=== PATIENT | female | born 1975 | race Caucasian/White ===

== ENCOUNTER 2017-01-21 03:04 | Inpatient (IN) ==
[2017-01-21] MEDS ORDERED: TYLENOL ONE (03:13)
[2017-01-21 03:32] LABS: BASO% 0.1 % (0.0-0.8); MANUAL DIFF NEEDED? NO; MCH 31.7 PG (27-31)
[2017-01-21] MEDS ORDERED: TYLENOL PO ONE (03:33)
[2017-01-21] MEDS ORDERED: DEMEROL IM ONE (03:54)
--- NOTE | 2017-01-21 03:54 | PROVIDER DOCUMENTATION ---
HPI-Abdominal Pain/GI Problem - General Chief Complaint: Insect Bite/Sting Stated Complaint: INSECT BITE/STING Time Seen by Provider: 01/21/17 03:41 Source: patient Allergies/Adverse Reactions: Patient Allergies Allergy/AdvReac Type Severity Reaction Status Date / Time codeine [Codeine] Allergy Intermediate HIVES Verified 01/21/17 03:17 morphine Allergy Intermediate HIVES Verified 01/21/17 03:17 Home Medications: Home Medication List Medication Instructions Recorded Confirmed Last Taken Type Escitalopram Oxalate [Lexapro] 20 mg PO DAILY 03/05/15 01/21/17 06/05/15 History Gabapentin [Neurontin] 300 mg PO TID 03/05/15 01/21/17 06/16/15 History Meloxicam [Mobic] 15 mg PO DAILY 06/17/15 01/21/17 06/16/15 History - History of Present Illness-ABD Nature of Presenting Problems: FOUND TICK ON THUMB WITH LYMPHANGITIS ASCENDING TO ELBOW FEVERISH CHILLS AND ABDOMINAL PAIN Abdominal Pain Onset Location: reports: generalized abdomen Pain Radiation: reports: no radiation Quality of Pain: reports: cramping Severity in ED: reports: moderate Onset/Duration: reports: this morning Timing: reports: still present, getting worse Activities at Onset: reports: none Exposure to sick contacts?: No Modifying Factors: improves with: nothing Associated Symptoms: reports: diarrhea, fever/chills, headaches, joint pain, muscle aches, nausea, shortness of breath Last BM: 24 hours ago Dark Stools Present?: reports: none noticed Rectal Bleeding: reports: none # of Diarrhea Episodes: 2 Rectal Pain: reports: none # of Vomiting Episodes: 0 Bruising or Bleeding Gums?: No Similar Symptoms Previously?: No Recently seen or treated by another doctor?: No Review of Systems - Adult - REVIEW OF SYSTEMS - ADULT Constitutional: reports: chills, fever Eyes: reports: no symptoms reported Ears, Nose, Mouth & Throat: reports: no symptoms reported Cardiovascular: reports: palpitations Respiratory: reports: cough. denies: hemoptysis Gastrointestinal: reports: abdominal pain, diarrhea, nausea. denies: constipation, vomiting Musculoskeletal: reports: bone pain, back pain, joint swelling, muscle aches. denies: neck pain Integumentary: reports: skin sores/ulcer Neurological: reports: no symptoms reported Psychiatric: reports: anxiety, emotional problems Endocrine: reports: no symptoms reported Hematologic/Lymphatic: reports: no symptoms reported, blood clots. denies: easy bruising, low blood count Allergic/Immunologic: reports: no symptoms reported All Other Systems: Reviewed and Negative Past History - Adult - PAST MEDICAL HISTORY-ADULT Review of Records: reports: Nursing Assessment Review, Medications Reviewed, Social history reviewed & non-contributory. Major Childhood Illnesses: reports: denies history Respiratory: reports: COPD Musculoskeletal: reports: chronic pain Psychiatric: reports: depression Endocrine/Immune: reports: denies history - PRIOR SURGERIES/PROCEDURES Surgical/Procedure History: reports: none - IMMUNIZATION STATUS Childhood Immunizations: See Nurse Assessment Flu Vaccine: See Nurse Assessment - SOCIAL HISTORY Smoking: cigarettes Alcohol Use Frequency: never Physical Exam-General - PHYSICAL EXAM-ADULT Initial Vital Signs Reviewed: Yes - CONSTITUTIONAL General Appearance: moderate distress - EYES Eyes: PERRL/EOMI, pink conjunctivae - HEAD, EARS, NOSE, MOUTH & THROAT HENMT: normocephalic/atraumatic, moist mucous membranes, normal ENT inspection, TMs normal, pharynx normal - NECK Neck: supple. negative: lymphadenopathy - RESPIRATORY Respiratory: lungs clear, no respiratory distress, no accessory muscle use, increased rate - CARDIOVASCULAR Cardiovascular: tachycardia - GASTROINTESTINAL (ABDOMEN) Abdominal Exam: soft, guarding, tenderness. negative: distended, rigid, rebound - LYMPHATIC Lymphatic: no adenopathy - MUSCULOSKELETAL Back Exam: normal inspection, no CVA tenderness, no vertebral tenderness Extremity: normal range of motion - SKIN Integumentary: normal color, normal turgor, erythema, swelling - NEUROLOGIC Neurologic: grossly normal - PSYCHIATRIC Psych/Mental Status: oriented x 3 Progress - PLAN OF CARE/RESULTS Progress/Plan/Lab Results: Vital Signs - 8 hr 01/21/17 03:10 Temperature 101 F H Pulse Rate 128 H Respiratory Rate 20 Blood Pressure 133/100 O2 Sat by Pulse Oximetry 96 Laboratory Results - last 24 hr 01/21/17 03:20 WBC 18.52 H RBC 4.54 Hgb 14.4 Hct 41.6 MCV 91.6 MCH 31.7 H MCHC 34.6 RDW Std Deviation 11.9 Plt Count 56 L MPV 11.3 H Immature Gran % (Auto) 0.4 Neut % (Auto) 88.4 H Lymph % (Auto) 6.1 L [place] % (Auto) 3.7 Eos % (Auto) 1.3 Baso % (Auto) 0.1 Immature Gran # (Auto) 0.07 H Neut # (Auto) 16.37 H Lymph # (Auto) 1.13 L [place] # (Auto) 0.68 H Eos # (Auto) 0.25 Baso # (Auto) 0.02 Orders Category Date Time Status CBC WITH ELECTRONIC DIFF [HEME] Stat Lab 01/21/17 03:20 Completed CMP [COMPREHENSIVE METABOLIC PANEL] [CHEM] Stat Lab 01/21/17 03:20 Received Acetaminophen [Tylenol] Med 01/21/17 03:13 Discontinued 1,000 mg .ROUTE .STK-MED ONE Acetaminophen [Tylenol] Med 01/21/17 03:33 Discontinued 1,000 mg PO NOW ONE Result Diagrams: 01/21/17 03:20 01/21/17 03:45 - XRAY 1 XRAY Study: Chest Impression: Normal Departure - Departure Date of Disposition Decision: 01/21/17 Time of Disposition Decision: 05:09 DIAGNOSIS: Lymphangitis Disposition: HOME 01 Certified Medical Emergency: Emergent Condition: Stable Additional Freetext Instructions: ED Follow Up Instructions: You have been treated by a care provider in the Emergency Department. These instructions are being provided to you so you can have an understanding of how to care for yourself upon discharge. Upon discharge from the Emergency Department, you are responsible for making arrangements for follow-up care by a physician of your choice. Take all prescribed medications as directed. Return to the Emergency Department immediately for any new or worsening symptoms. You may call the Physician Referral phone number at [phone] to obtain a list of Physicians who are taking new patients. Referrals and Follow-Ups: Mike Rodriguez [Primary Care Provider] - - Critical Care Note This patient required my direct & personal management of CC.: No
[2017-01-21] MEDS ORDERED: PHENERGAN IM ONE (03:55)
[2017-01-21 04:09] LABS: EOS# 0.01 X1000 (0.0-0.7); HEMATOCRIT 39.9 % (37.0-47.0); HEMOGLOBIN 13.9 g/dL (12.0-16.0); IMM GRAN# 0.06 X1000 (0.0-0.04); IMM GRAN% 0.3 % (0.0-0.5); LYMPH# 1.17 X1000 (1.2-3.4); LYMPH% 5.5 % (20.5-51.1); MCHC 34.8 g/dL (33-37); MCV 91.1 FL (81-99); MONO# 0.84 X1000 (0.11-0.59); MPV 9.7 FL (7.4-10.4); NEUT% 90.1 % (42.2-75.2); RBC 4.38 XMIL (4.2-5.4)
[2017-01-21 04:25] LABS: AGAP 15; ALBUMIN 4.3 g/dL (3.5-5.0); ALKALINE PHOSPHATASE 65 U/L (32-104); AMYLASE 43 U/L (20-200); BUN 14 mg/dL (8-22); CALCIUM 9.2 mg/dL (8.8-10.2); CHLORIDE 100 mmol/L (98-107); COSMO 268; GOT 24 U/L (10-30); GPT 30 U/L (10-36); LIPASE 28 U/L (13-60); POTASSIUM 3.6 mmol/L (3.5-5.1); SODIUM 133 mmol/L (136-145); TCO2 19 mmol/L (25-35); TOTAL PROTEIN 7.4 g/dL (6.3-8.3)
[2017-01-21 04:47] LABS: PLT 257 X1000 (130-400)
[2017-01-21] MEDS ORDERED: XYLOCAINE-MPF 1% INJ ONE (04:48)
[2017-01-21] MEDS ORDERED: ROCEPHIN IM ONE (04:48)
[2017-01-21 04:53] LABS: BILIRUBIN URINE NEGATIVE (NEGATIVE); BLOOD URINE 1+ (NEGATIVE); CLARITY SL. CLOUDY (CLEAR); COLOR YELLOW; LEUKOCYTES URINE 2+ (NEGATIVE); NITRITE URINE POSITIVE (NEGATIVE); PROTEIN URINE TRACE mg/dL (NEGATIVE); SP GRAVITY URINE 1.015
[2017-01-21] MEDS ORDERED: NS 1,000 ML IV ONE (05:02)
[2017-01-21] MEDS ORDERED: ROCEPHIN 1 GM/NS 1 GM/50 ML IVPB IV STA (05:04)
[2017-01-21] MEDS ORDERED: NORCO-5 PO PRN (05:07)
[2017-01-21 05:08] LABS: URINE CULTURE PL NEEDED? YES; URINE EPITHELIAL CELLS <10 /HPF (<10); URINE RBC <10 /HPF (<10); URINE SOURCE CLEAN CATCH
[2017-01-21 05:09] LABS: UROBILINOGEN URINE 4+(12 mg/dL)
[2017-01-21] MEDS ORDERED: VANCOMYCIN 1 GM/NS 1 GM/250 ML IVPB ONE (05:09)
[2017-01-21] MEDS ORDERED: VANCOMYCIN IV PER PHARMACY MISC SCH (05:15)
[2017-01-21] MEDS ORDERED: NICODERM PATCH TD ONE (05:18)
[2017-01-21] MEDS ORDERED: VANCOMYCIN 1 GM/NS 1 GM/250 ML IVPB IV ONE (06:00)
--- NOTE | 2017-01-21 07:31 | Diag Imaging Result Doc PS360 ---
EXAM: CHEST-2 VIEWS HISTORY: Fever TECHNIQUE: PA and lateral chest COMMENT: There may be COPD. Compared to 05/17/2012 the appearance of the chest has not changed appreciably considering differences in inspiration. There are no focal opacities in the heart and pulmonary vascularity are within normal limits. IMPRESSION: COPD. Electronically signed by Kev Figueroa 01/21/2017 7:29 AM
[2017-01-21] MEDS ORDERED: NORCO-10 PO ONE (07:59)
[2017-01-21] MEDS ORDERED: VANCOMYCIN 800 MG in NS 250 ML IV ONE ×4 (08:00)
[2017-01-21] MEDS ORDERED: VANCOMYCIN 850 MG in NS 250 ML IV ONE (08:00)
[2017-01-21] MEDS ORDERED: MOBIC PO SCH (09:00)
[2017-01-21] MEDS: LEXAPRO PO SCH (09:24)
[2017-01-21] MEDS: NEURONTIN PO SCH ×3 (09:24→16:49)
[2017-01-21] MEDS: NICODERM PATCH TD SCH (10:03)
[2017-01-21] MEDS: DEMEROL IV PRN ×3 (10:04→20:26)
--- NOTE | 2017-01-21 10:08 | HISTORY AND PHYSICAL ---
PRIMARY CARE PHYSICIAN: Dr. Rodriguez. CHIEF COMPLAINT: Redness to her left forearm after she found a tick on her thumb. Was also having fever, chills, and abdominal pain. HISTORY OF PRESENTING ILLNESS: This is a 41-year-old, female who presented to [facility] ER with complaints of pain to her left forearm after she states, on the 19 of January, she found a tick on her thumb, then began having fevers, chills , and abdominal pain. She also had some dysuria and urgency. Her left arm is noted to be erythematous and warm to touch from her left thumb ascending up to her elbow. Workup in the ER showed a white blood cell count of 21.23. Urinalysis showed positive nitrites, 2+ white blood cells , and 4+ bacteria. The patient states she is having severe abdominal pain. States that it is a osvaldo, cramping sensation that is occurring every 30 seconds to 1 minute, and then will relax. She is tearful during these episodes of her abdominal pain so she is being admitted for further evaluation and treatment. PAST MEDICAL HISTORY: COPD and depression. PAST SURGICAL HISTORY: None. FAMILY HISTORY: Noncontributory. SOCIAL HISTORY: She currently lives alone. Smokes a half a pack of cigarettes a day and has done so for the past 20-25 years. Denied any alcohol or illicit drug use. ALLERGIES: Codeine and morphine. HOME MEDICATIONS: She takes Lexapro 20 mg p.o. daily, Neurontin 300 mg p.o. t.i.d., and Mobic 15 mg p.o. daily. LABORATORY DATA: Showed a white blood cell count of 21.23, hemoglobin of 13.9, hematocrit 39.9, platelets 257,000. PTT was 23. Sodium 133, potassium 3.6, chloride 100, CO2 19 , BUN of 14, creatinine 0.5, glucose 122, calcium 9.2. Amylase 43, lipase 28. Plasma lactate was 2.3. Urinalysis showed positive nitrites, 2+ white blood cells, 4+ bacteria. Chest x -ray showed COPD. REVIEW OF SYSTEMS: She was positive for fever, chills, abdominal pain, dysuria , urgency, pain to her left forearm from her thumb ascending up to the elbow. Otherwise negative review of systems. PHYSICAL EXAMINATION: VITAL SIGNS: On arrival, she had a temperature of a 101 degrees, pulse was 128 , respirations were 20. Blood pressure 133/100 and was saturating 96% on room air. Currently, she has a temperature of 98.7 degrees. GENERAL: This is a 41-year-old, female who is lying in the bed and answers questions appropriately. HEENT: Normocephalic and atraumatic. The pupils are equal, round, and reactive to light. The extraocular movements are intact. The oropharynx and nares are clear. NECK: Supple. LUNGS: Clear to auscultation bilaterally with equal lung expansion and chest wall movement. HEART: With regular rate and rhythm. No murmurs, rubs, or gallops. ABDOMEN: Soft. Tenderness to palpation throughout entire abdomen. Bowel sounds were present x4 quadrants. EXTREMITIES: No clubbing, cyanosis. Patient is noted on her left thumb to have redness that ascends up to the elbow. There is minimal warmth to touch at this time. NEUROLOGICAL: The cranial nerves 2-12 appear grossly intact. ASSESSMENT: 1. Left forearm cellulitis secondary to tick bite. 2. Leukocytosis. 3. Urinary tract infection. 4. Abdominal pain. 5. Tobacco abuse. PLAN: She was admitted to the medical unit. Placed on a regular diet. Vancomycin per pharmacy protocol. Rocephin 1 gram IV q.24. We will also place her on doxycycline 100 mg IV q.12. Continue her home medications. She has normal saline at 125 mL an hour. She does have a urinary tract infection but her abdominal pain is not appearing to be we correlated with the urinary tract infection as she just has generalized cramping and states that it feels like a contraction. We are going to check a flat and upright of her abdomen today. Give her some Demerol 25 mg IV q.3 hours p.r.n. Continue her [place] 10 one p.o. q.6 hours p.r.n. Recheck a CBC and a BMP in the a.m. I also give her a nicotine patch 21 mg transdermally daily. Dictated by LYNNETTE Forrester for Lenin Paris MD cc: LYNNETTE Forrester MD Vito Pukis, MD I have seen and examined patient and I agree with the outline plan. suspected tick bite abdominal pain with diarrhea r/o colitis rkq MTDD
[2017-01-21] MEDS: DOXYCYCLINE 100 MG in NS 250 ML IV SCH (10:33)
--- NOTE | 2017-01-21 11:09 | Diag Imaging Result Doc PS360 ---
EXAM: ABDOMEN FLAT/UPRIGHT HISTORY: abd pain TECHNIQUE: Two views COMMENT: There are air-fluid levels in the ascending colon and throughout the small bowel. There is stool in the descending colon with gas in the rectum. There is no evidence organomegaly or mass. There may be some mucosal thickening in the distal ileum. IMPRESSION: Ileus versus partial small bowel obstruction. Possibility of inflammatory bowel disease cannot be excluded on the basis of this study. Electronically signed by Kev Figueroa 01/21/2017 11:07 AM
--- NOTE | 2017-01-21 15:47 | PROGRESS NOTE ---
DATE: 01/21/2017 SUBJECTIVE: Today, Ms. Carlton referred to be doing relatively fine. Continues to have remarkable abdominal pain. Also had 4 bowel movements since today. Ms. Carlton got admitted yesterday because of possible tick bites with lymphangitis. OBJECTIVE: Vital signs: Blood pressure is 138/75, pulse of 91, respirations 22, temperature 97.6 degrees. General: Ms. Carlton is a 41-year-old female. She is in bed, in mild abdominal discomfort. HEENT: Mucosa is pink and moist. Anicteric. Acyanotic. Neck: Supple. Chest: Good air entry bilateral. No crepitations. No rhonchi. Cardiovascular: Regular rate and rhythm. No murmurs, no rubs. No gallops. Abdomen: Soft, tender all over, more so in the periumbilical region. Extremities: The left arm has a point on the medial aspect which is consistent with a possible bite and there continues erythematous changes all the way up to the arm. TRAVEL OCCUPATIONAL THERAPIST: Patient is awake and alert and oriented x4. There is no focal neurological deficit. LABORATORY DATA: WBC is 21.23, hemoglobin is 13.9, platelet count of 257,000. Chemistry is reviewed. Bicarb is 19 with a plasma lactate of 2.3. ASSESSMENT: 1. Left forearm cellulitis secondary to tick bite with lymphangitis. 2. Suspected urinary tract infection. 3. Abdominal pain. Etiology is currently unclear. Patient is having diarrhea. There is a suspicion that she could just have colitis or gastroenteritis; however, an inflammatory disease or diverticulitis is also a possibility. So we will go ahead and do a CT scan of the abdomen and pelvis to see if there is nothing surgical in the abdomen. 4. Tobacco abuse. Patient has been counseled. 5. Mild gap acidosis secondary to lactic acid. We will start the patient on gentle hydration and repeat the lactic acid for the morning. 6. Patient is currently on IV antibiotics. We will make changes accordingly depending on the CT scan report. cc: Lenin Paris MD
--- NOTE | 2017-01-21 15:50 | Diag Imaging Result Doc PS360 ---
EXAM: CT ABD/PELVIS W/ IV CONT ONLY HISTORY: abd pain TECHNIQUE: CT of the abdomen with intravenous contrast and dose reduction (clarity.) COMMENT: The visualized portion of the chest is unremarkable. The liver spleen adrenal glands and pancreas are unremarkable and unchanged in appearance since 07/01/2012. There is no evidence of cholelithiasis. The kidneys are without evidence of hydronephrosis or mass. There is no evidence of abdominal aortic aneurysm or significant adenopathy. There is fluid throughout much of the small bowel and the ascending colon. CT of the pelvis with intravenous contrast: The appendix is not distended. There is fluid in the rectum. There is a small amount of free fluid in the cul-de-sac. There are apparent leiomyomata in the uterus. This was also the case at the time the previous study of 07/01/2012. The regional skeleton is stable in appearance. IMPRESSION: Possibility of enterocolitis is suspected. Otherwise no evidence of acute disease. Electronically signed by Kev Figueroa 01/21/2017 3:48 PM
[2017-01-21] MEDS: NORCO-10 PO PRN (16:49)
[2017-01-21] MEDS: NS 1,000 ML IV SCH (16:49)
[2017-01-21 19:55] LABS: C DIFF TOXIN PL NEGATIVE (NEGATIVE)
[2017-01-21] MEDS ORDERED: VANCOMYCIN 1,350 MG in NS 250 ML IV SCH ×4 (21:00)
[2017-01-21] MEDS ORDERED: FLAGYL 250 MG/NS 250 MG/50 ML IVPB IV SCH (21:45)
[2017-01-21] MEDS: BENTYL IM SCH (22:05)
[2017-01-21] MEDS: LEVAQUIN 250 MG/D5W 250 MG/50 ML IVPB IV SCH (22:06)
[2017-01-21] MEDS: FLAGYL IV SCH (23:08)
[2017-01-21] MEDS: [UNRECOGNIZED DRUG - OTHER] IV SCH (23:08)
[2017-01-21] MEDS ORDERED: BLISTEX MEDICATED BERRY LIP BALM TOP PRN (23:21)
[2017-01-22] MEDS: DOXYCYCLINE 100 MG in NS 250 ML IV SCH ×3 (00:03→22:21)
[2017-01-22] MEDS: NORCO-10 PO PRN ×4 (00:07→20:13)
[2017-01-22] MEDS: FLAGYL IV SCH ×4 (03:11→23:54)
[2017-01-22] MEDS: [UNRECOGNIZED DRUG - OTHER] IV SCH (03:11)
[2017-01-22] MEDS: DEMEROL IV PRN ×6 (04:27→22:21)
[2017-01-22] MEDS: NS 1,000 ML IV SCH ×2 (04:29→17:20)
[2017-01-22] MEDS: BENTYL IM SCH ×3 (04:55→21:27)
[2017-01-22] MEDS ORDERED: ROCEPHIN 1 GM/NS 1 GM/50 ML IVPB IV SCH (05:00)
[2017-01-22] MEDS: LEXAPRO PO SCH (08:54)
[2017-01-22] MEDS: NICODERM PATCH TD SCH (08:55)
[2017-01-22] MEDS: NEURONTIN PO SCH ×3 (08:56→17:11)
[2017-01-22 09:05] LABS: BASO% 0.1 % (0.0-0.8); EOS# 0.53 X1000 (0.0-0.7); EOS% 1.8 % (0.0-10.0); HEMATOCRIT 33.4 % (37.0-47.0); HEMOGLOBIN 11.9 g/dL (12.0-16.0); IMM GRAN# 0.16 X1000 (0.0-0.04); IMM GRAN% 0.5 % (0.0-0.5); LYMPH# 2.61 X1000 (1.2-3.4); LYMPH% 8.7 % (20.5-51.1); MANUAL DIFF NEEDED? YES; MCH 32.4 PG (27-31); MCHC 35.6 g/dL (33-37); MONO# 1.07 X1000 (0.11-0.59); MONO% 3.6 % (1.7-9.3); MPV 10.2 FL (7.4-10.4); NEUT% 85.3 % (42.2-75.2); PLT 222 X1000 (130-400); RBC 3.67 XMIL (4.2-5.4)
[2017-01-22 09:20] LABS: AGAP 12; BUN 11 mg/dL (8-22); CALCIUM 8.4 mg/dL (8.8-10.2); CHLORIDE 108 mmol/L (98-107); COSMO 275; POTASSIUM 3.7 mmol/L (3.5-5.1); SODIUM 138 mmol/L (136-145); TCO2 19 mmol/L (25-35)
[2017-01-22 09:29] LABS: EOS 1 % (1-10); LYMPHS 9 % (21-51); MONO 1 % (1-9)
[2017-01-22 10:54] LABS: C DIFF ANTIGEN PL NEGATIVE (NEGATIVE)
[2017-01-22] MEDS: NS IV SCH ×3 (11:39→23:54)
--- NOTE | 2017-01-22 13:59 | PROGRESS NOTE ---
DATE: 01/22/2017 SUBJECTIVE: Today Ms. Carlton referred to be in excruciating pain in the abdomen. To her the left cellulitis has improved but she is saying what really brought her to the hospital was the abdominal pain. The diarrhea has subsided. OBJECTIVE: Vitals: Blood pressure is 119/69, pulse is 93, respiration is 18, temperature is 100.5 degrees. General: Ms. Carlton is a 41-year-old female. She is in bed, seems to be in some painful distress. HEENT: Mucosa is pink and moist. Anicteric. Acyanotic. Neck: Supple. Chest: Good entry bilaterally. No crepitations. No rhonchi. Cardiovascular: Regular rate and rhythm. Abdomen: Soft, back tender all over. MOLD SWABBER: Patient is alert and oriented x4. There is no focal neurological deficit. LABORATORY DATA: WBC went up to 30.11, hemoglobin is 11.9, platelet count of 222,000, there is 89% of neutrophils. Sodium is 138, potassium is 3.9, chloride is 108, bicarb is 19, there was 2.3% of lactate yesterday, we are going to repeat that. A CT scan of the abdomen which was done yesterday shows possibility of enteric colitis is suspected, no evidence of acute disease. ASSESSMENT AND PLAN: 1. Left forearm cellulitis secondary to tick bite with lymphangitis. This is improving. 2. Gram-negative carol urinary tract infection. We are still pending the identification and sensitivity. 3. Abdominal pain. CT scan reveals enterocolitis. Patient's diarrhea has subsided. There was no any mention of a surgical cause for the abdominal pain. We made some changes to the current antibiotics. I am going to go up on her pain medications. Hopefully we can get a hold on the abdominal pain. If not we will get surgery to review the patient. 4. Tobacco abuse. Patient has been counseled. 5. Mild metabolic acidosis which is currently non gap. We are going to repeat the plasma lactate to see where is the trend. Of note patient's white cell count went up slightly today. There is no bands but we are going to keep a very close eye on her. Current antibiotics include levofloxacin 250 daily and metronidazole 250 q.6 and also doxycycline for the possible cellulitis from the tick bite. Because of concern of possible inflammatory bowel disease I have ordered inflammatory markers including sedimentation rate and CRP and I am pending the result. cc: Lenin Paris MD MTDD
[2017-01-22] MEDS: LEVAQUIN 250 MG/D5W 250 MG/50 ML IVPB IV SCH (21:27)
[2017-01-23] MEDS: DEMEROL IV PRN ×7 (01:42→23:57)
[2017-01-23] MEDS: FLAGYL IV SCH ×2 (05:05→13:13)
[2017-01-23] MEDS: BENTYL IM SCH ×2 (05:05→13:06)
[2017-01-23] MEDS: NS IV SCH ×2 (05:05→13:13)
[2017-01-23 06:08] LABS: MANUAL DIFF NEEDED? NO
[2017-01-23 06:16] LABS: BASO% 0.1 % (0.0-0.8); EOS# 0.34 X1000 (0.0-0.7); EOS% 2.1 % (0.0-10.0); HEMATOCRIT 32.1 % (37.0-47.0); HEMOGLOBIN 10.7 g/dL (12.0-16.0); IMM GRAN# 0.02 X1000 (0.0-0.04); IMM GRAN% 0.1 % (0.0-0.5); LYMPH# 2.72 X1000 (1.2-3.4); LYMPH% 16.4 % (20.5-51.1); MCHC 33.3 g/dL (33-37); MONO# 0.93 X1000 (0.11-0.59); MONO% 5.6 % (1.7-9.3); NEUT% 75.7 % (42.2-75.2); PLT 225 X1000 (130-400); RBC 3.45 XMIL (4.2-5.4)
[2017-01-23 06:42] LABS: AGAP 9; BUN 8 mg/dL (8-22); CALCIUM 8.4 mg/dL (8.8-10.2); CHLORIDE 106 mmol/L (98-107); COSMO 273; POTASSIUM 2.7 mmol/L (3.5-5.1); SODIUM 137 mmol/L (136-145); TCO2 22 mmol/L (25-35)
[2017-01-23] MEDS: NICODERM PATCH TD SCH (08:21)
[2017-01-23] MEDS: LEXAPRO PO SCH (08:21)
[2017-01-23] MEDS: NEURONTIN PO SCH ×3 (08:21→16:23)
[2017-01-23] MEDS ORDERED: KLOR-CON PO ONE (08:23)
[2017-01-23] MEDS: NS 1,000 ML IV SCH ×2 (08:34→20:54)
[2017-01-23] MEDS: DOXYCYCLINE 100 MG in NS 250 ML IV SCH ×3 (10:00→21:33)
[2017-01-23 11:56] LABS: AMYLASE 30 U/L (20-200); LIPASE 22 U/L (13-60)
[2017-01-23] MEDS: NORCO-10 PO PRN ×2 (13:11→19:31)
--- NOTE | 2017-01-23 13:20 | PROGRESS NOTE ---
DATE: 01/23/2017 SUBJECTIVE: Today Mrs. Carlton states that the abdominal pain is a little bit better but she is still in pain. She is still having diarrhea but today just 1 bowel movement that was watery, no blood. We did an abdomen and pelvis CT scan with IV contrast only that showed a possibility of enterocolitis. Otherwise no evidence of acute disease. We asked for C. difficile colitis lab work but it was canceled so I will order a C. difficile colitis toxin and antigen again. We also have a positive urine culture that showed E. coli that is pansensitive, since this patient is on already on levofloxacin I will keep it. OBJECTIVE: Vital Signs: Temperature 99 degrees, pulse 81, respiratory rate 20, blood pressure 115/69, oxygen saturation 100% on room air. HEENT: Head normocephalic. No trauma. PERRLA. Neck: Supple. No JVD. No masses. Central trachea. Chest: Clear to auscultation. No wheezing. No rales. Abdomen: Soft. Generalized tenderness to palpation mostly at the level of the right lower quadrant and epigastric area. No rebound. Positive bowel sounds. Extremities: No edema. No clubbing. No cyanosis. Neurological: The patient is alert and oriented x3. No focal deficits. LABORATORY: WBC 16.5, hemoglobin 10.7, hematocrit 32.1, platelets 225,000. Sodium 137, potassium 2.7, chloride 106, bicarbonate 22, BUN 8, creatinine 0.4, glucose 122, calcium 8.4. ASSESSMENT AND PLAN: 1. Abdominal pain. CT scan reveals enterocolitis, the diarrhea is getting better. Today she just had 1 bowel movement that was watery, I increased the dose of levofloxacin and metronidazole. I will monitor this patient for 1 more day and if I do not have any improved any kind of improvement regarding her abdominal pain I will consult surgery. 2. Left forearm cellulitis secondary to tick bite from lymphangitis This is improving. 3. Escherichia coli urinary tract infection, pansensitive. I will continue with levofloxacin. 4. Tobacco abuse. This patient has been highly advised against tobacco abuse. I will continue with daily cessation education. 5. Leukocytosis. This is getting better. At the beginning the WBC increased from 21 to 30 and now it came down to 16.5. I will continue with daily lab work. cc: Jose Daniel Awad MD
[2017-01-23] MEDS: FLAGYL 500 MG/NS 500 MG/100 ML IVPB IV SCH ×3 (16:19→21:33)
[2017-01-23] MEDS: LEVAQUIN 500 MG/D5W 500 MG/100 ML IVPB IV SCH (20:54)
[2017-01-24] MEDS: DEMEROL IV PRN ×6 (03:43→21:48)
[2017-01-24] MEDS: FLAGYL 500 MG/NS 500 MG/100 ML IVPB IV SCH ×3 (06:15→17:28)
[2017-01-24 06:25] LABS: MANUAL DIFF NEEDED? NO
[2017-01-24 06:42] LABS: BASO% 0.1 % (0.0-0.8); EOS# 0.38 X1000 (0.0-0.7); EOS% 4.7 % (0.0-10.0); HEMATOCRIT 29.1 % (37.0-47.0); HEMOGLOBIN 9.9 g/dL (12.0-16.0); IMM GRAN# 0.01 X1000 (0.0-0.04); IMM GRAN% 0.1 % (0.0-0.5); LYMPH# 2.27 X1000 (1.2-3.4); LYMPH% 27.8 % (20.5-51.1); MCH 31.4 PG (27-31); MCV 92.4 FL (81-99); MONO# 0.64 X1000 (0.11-0.59); MONO% 7.8 % (1.7-9.3); MPV 10.3 FL (7.4-10.4); NEUT% 59.5 % (42.2-75.2); PLT 224 X1000 (130-400); RBC 3.15 XMIL (4.2-5.4)
[2017-01-24 06:55] LABS: AGAP 9; BUN 7 mg/dL (8-22); CALCIUM 8.1 mg/dL (8.8-10.2); CHLORIDE 108 mmol/L (98-107); COSMO 278; POTASSIUM 2.9 mmol/L (3.5-5.1); SODIUM 140 mmol/L (136-145); TCO2 24 mmol/L (25-35)
[2017-01-24] MEDS ORDERED: KLOR-CON PO ONE (07:31)
[2017-01-24] MEDS: LEXAPRO PO SCH (09:03)
[2017-01-24] MEDS: NICODERM PATCH TD SCH (09:03)
[2017-01-24] MEDS: NEURONTIN PO SCH ×3 (09:04→17:29)
--- NOTE | 2017-01-24 09:27 | Diag Imaging Result Doc PS360 ---
EXAM: KUB ABDOMEN - 01/24/2017 HISTORY: Abdominal pain TECHNIQUE: Portable AP supine abdomen 9:04 AM COMPARISON: 01/21/2017 FINDINGS: There is mild gaseous small bowel distention which is decreased. There are some retained fecal debris in the colon. There is stable mild gaseous distention of the stomach. IMPRESSION: Mild gaseous small bowel distention which is decreased compared to the prior exam. Electronically signed by Janes Silva 01/24/2017 9:24 AM
--- NOTE | 2017-01-24 09:49 | PROGRESS NOTE ---
DATE: 01/24/2017 SUBJECTIVE: Today, Ms. Carlton states that the abdominal pain is about the same compared with yesterday. She had just 1 bowel movement yesterday and was watery. No blood. We did an abdomen and pelvis CT scan with IV contrast only that showed the possibility of enterocolitis. Otherwise, no evidence of acute disease. We asked for C. difficile colitis and is negative. We also have a positive urine culture that showed E. coli that is pansensitive. This patient is already on levofloxacin. Since the pain has been about the same even with treatment, I will ask the surgery department to evaluate this patient to rule out any surgical condition. I will ask also for an abdominal x-ray today. OBJECTIVE: Vital Signs: Temperature 98.4 degrees, pulse 82, respiratory rate 18, blood pressure 117/67, oxygen saturation 100% on room air. HEENT: Head normocephalic. No trauma. PERRLA. Neck: Supple. No JVD. No masses. Central trachea. Chest: Clear to auscultation. No wheezing. No rales. Abdomen: Soft. Generalized tenderness to palpation but mostly at the level of the right lower quadrant. Questionable rebound. Positive bowel sounds. Extremities: No edema. No clubbing. No cyanosis. Her left arm had a lymphangitis and also redness that now is much better, basically resolved. Neurologic: This patient is alert and oriented x3. No focal deficits. Laboratory: WBC 8.1, hemoglobin 9.9, hematocrit 29.1, platelets 224,000. Sodium 140, potassium 2.9, chloride 108, bicarbonate 24, BUN 7, creatinine 0.4, glucose 101, calcium 8.1. ASSESSMENT AND PLAN: 1. Abdominal pain. CT scan reveals enterocolitis. Diarrhea is much better, just 1 episode yesterday. No bowel movements today. The abdominal pain is about the same compared with yesterday, even with the medications. I will ask surgery department to evaluate this patient to rule out any surgical condition. Also, I will ask for a KUB. 2. Left forearm cellulitis secondary to tick bite and lymphangitis. This is much better, almost resolved. Continue with the same management. 3. E. coli urinary tract infection, pansensitive. Continue with levofloxacin. 4. Tobacco abuse. This patient has been highly advised against tobacco abuse. I will continue with daily cessation education. Also, I will continue with the nicotine patch. 5. leukocytosis. This is getting better. Today, actually is resolved. cc: Jose Daniel Awad MD
[2017-01-24] MEDS: DOXYCYCLINE 100 MG in NS 250 ML IV SCH ×2 (10:13→21:47)
[2017-01-24] MEDS: NORCO-10 PO PRN ×2 (10:14→17:42)
[2017-01-24] MEDS: NS 1,000 ML IV SCH (11:42)
--- NOTE | 2017-01-24 17:08 | CONSULTATION ---
DATE OF CONSULTATION: 01/24/2017 HISTORY OF PRESENT ILLNESS: Ms. 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 She underwent abdominal and pelvic CT scan later that day because of her abdominal pain with suggested possible enterocolitis. There was no evidence by this x-ray of cholelithiasis or appendicitis. She has been treated for enterocolitis with IV antibiotics over the last 3 days, but she continues to have abdominal pain and we were asked to evaluate her. PAST MEDICAL HISTORY: None. MEDICATIONS: Lexapro and Neurontin. She sees a doctor in [place]. ALLERGIES: Codeine. SOCIAL HISTORY: She lives in [place]. She smokes 1/2 pack of cigarettes a day and she does yard work. REVIEW OF SYSTEMS: A 14-point review of systems was performed and was essentially negative except for the history of present illness. FAMILY HISTORY: Noncontributory. PHYSICAL EXAMINATION: General: Ms. Carlton is a middle aged white female of good weight. She is in no acute distress. She is cooperative. Vital signs: Her heart rate is 82. Blood pressure 117/67. O2 saturation is 100%. Abdomen: Soft, but it is diffusely tender. She has been given a diet and she has not had a bowel movement today. She only had 1 yesterday. She had diarrhea when she came in. She had no costovertebral tenderness. HEENT: She had no jaundice. No oral lesions. No cervical or supraclavicular lymphadenopathy. Heart: Has a regular rate. Lungs: Clear. Rectal/Vaginal: Exams were not performed. Extremities: She does have palpable peripheral pulses. No peripheral edema. Neurological: She is alert oriented x3 and appropriate. DIAGNOSTIC DATA: Her white blood cell count has gone from 30 to 16 to 8.7 this morning with IV antibiotics. Her electrolytes are within normal limits except her potassium is low at 2.9. BUN and creatinine are 7 and 0.4. A flat and upright abdominal film today shows some mild gaseous distention of the small bowel, but it appears to be decreased from other studies. IMPRESSION: Diffuse abdominal pain with a CT scan that only suggests enterocolitis, possible clinical improvement over the last 24-48 hours on IV antibiotics with definite decrease in her white blood cell count. PLAN: We will plan to follow her clinically and do not feel that she needs any urgent operation. I expect her to improve daily. We can consider another CT scan of her abdomen and pelvis if her symptoms do not improve. cc: Angela Sanz MD
[2017-01-24] MEDS: LEVAQUIN 500 MG/D5W 500 MG/100 ML IVPB IV SCH (20:22)
[2017-01-25] MEDS: FLAGYL 500 MG/NS 500 MG/100 ML IVPB IV SCH ×4 (00:18→17:59)
[2017-01-25] MEDS: DEMEROL IV PRN ×7 (00:41→20:50)
[2017-01-25] MEDS: NS 1,000 ML IV SCH ×2 (03:32→14:56)
[2017-01-25 06:50] LABS: MANUAL DIFF NEEDED? NO
[2017-01-25 06:59] LABS: BASO% 0.3 % (0.0-0.8); EOS# 0.46 X1000 (0.0-0.7); EOS% 5.8 % (0.0-10.0); HEMATOCRIT 29.8 % (37.0-47.0); HEMOGLOBIN 9.9 g/dL (12.0-16.0); IMM GRAN# 0.02 X1000 (0.0-0.04); IMM GRAN% 0.3 % (0.0-0.5); LYMPH% 27.6 % (20.5-51.1); MCH 30.7 PG (27-31); MCHC 33.2 g/dL (33-37); MCV 92.5 FL (81-99); MONO% 7.5 % (1.7-9.3); MPV 9.9 FL (7.4-10.4); NEUT% 58.5 % (42.2-75.2); PLT 279 X1000 (130-400); RBC 3.22 XMIL (4.2-5.4)
[2017-01-25 08:00] LABS: AGAP 8; BUN 8 mg/dL (8-22); CALCIUM 8.2 mg/dL (8.8-10.2); CHLORIDE 107 mmol/L (98-107); COSMO 280; POTASSIUM 3.6 mmol/L (3.5-5.1); SODIUM 141 mmol/L (136-145); TCO2 26 mmol/L (25-35)
[2017-01-25] MEDS: NEURONTIN PO SCH ×3 (08:18→17:35)
[2017-01-25] MEDS: LEXAPRO PO SCH (08:18)
[2017-01-25] MEDS: NICODERM PATCH TD SCH (08:19)
[2017-01-25] MEDS: DOXYCYCLINE 100 MG in NS 250 ML IV SCH (09:12)
[2017-01-25] MEDS: DIFLUCAN PO SCH (09:13)
[2017-01-25] MEDS: NEXIUM PO SCH (09:13)
[2017-01-25] MEDS: NORCO-10 PO PRN (09:49)
--- NOTE | 2017-01-25 09:52 | Diag Imaging Result Doc PS360 ---
EXAM: KUB ABDOMEN HISTORY: pain TECHNIQUE: COMPARISON: 01/24/2017 FINDINGS: Stool remains throughout the colon. Minimal air-filled loops of bowel in the left lower abdomen. No organomegaly. No foreign body. No abnormal calcifications. IMPRESSION: Continued mild interval improvement. Electronically signed by Keo Brasher 01/25/2017 9:50 AM
--- NOTE | 2017-01-25 14:53 | PROGRESS NOTE ---
DATE: 01/25/2017 SUBJECTIVE: Ms. Carlton continues to complain of some abdominal pain, although she states it is less than previous. OBJECTIVE: Vital Signs: Blood pressure is 129/72 with a heart rate of 81, respirations are 18, temperature is 97.9 degrees oral with a room air saturation 100%. Cardiovascular: Regular rate and rhythm. S1 and S2 appreciated. Pulmonary: Breath sounds are clear with no increased work of breathing noted. Gastrointestinal: Abdomen is soft, but diffusely tender with bowel sounds in all 4 quadrants. Cardiovascular: Regular rate and rhythm. S1, S2 appreciated. Pulmonary: Breath sounds are clear with no increased work of breathing noted. Extremities: No clubbing, cyanosis, or edema. Calves are nontender. Pulses are palpable x4. Neurologic: She is alert and oriented x3. DIAGNOSTICS: WBC is 7.9 with a hemoglobin of 9.9, hematocrit 29.8, and platelets of 279,000. Sodium is 141, potassium 3.6, BUN 8, creatinine 0.5 with a glucose of 109. ASSESSMENT: 1. Abdominal pain. 2. Enterocolitis. 3. Left forearm cellulitis, secondary to tick bite and lymphangitis. 4. Escherichia coli urinary tract infection. 5. Leukocytosis. Resolved. PLAN: We will continue with her current regimen, giving a gastrointestinal soft diet. Continue with her current medical regimen. We appreciate Dr. Sanz's help with this patient. We will follow along with him. Dictated by LYNNETTE Velez for Bhanu Hollins MD cc: LYNNETTE Velez MD
[2017-01-25] MEDS ORDERED: HUMALOG DOSE (PARKWAY) SUBQ SCH (16:00)
[2017-01-25] MEDS ORDERED: DOXYCYCLINE 100 MG in NS 250 ML IV SCH (18:24)
--- NOTE | 2017-01-25 19:38 | PROGRESS NOTE ---
DATE: 01/25/2017 SUBJECTIVE: Ms. Candi Carlton is improving clinically daily on IV antibiotics for enterocolitis. She got a shower today. She is sitting up dressed. OBJECTIVE: Vital signs: Her heart rate is 68, blood pressure 122/78, O2 saturation 97%. She is voiding without a Ervin. She is eating 50-100% of her meals. She is afebrile. Her white blood cell count is normal. Hematocrit is 30%. Electrolytes are within normal limits. ASSESSMENT: She is on a GI soft diet. Her abdominal pain is improving soft. We will sign off. Let us know if there is anything else we can do. Follow up edwar cc: Angela Sanz MD
[2017-01-25] MEDS: LEVAQUIN 500 MG/D5W 500 MG/100 ML IVPB IV SCH (20:50)
[2017-01-25] MEDS: DOXYCYCLINE PO SCH (20:50)
[2017-01-25] MEDS ORDERED: ZOFRAN IV ONE (22:24)
[2017-01-26] MEDS: DEMEROL IV PRN ×3 (00:35→07:31)
[2017-01-26] MEDS: NEXIUM PO SCH (06:08)
[2017-01-26] MEDS ORDERED: MYCOSTATIN SUSP PO SCH (09:00)
[2017-01-26] MEDS ORDERED: MIRALAX PO SCH (09:00)
[2017-01-26] MEDS: MYCOSTATIN SUSP PO SCH ×2 (09:04→13:15)
[2017-01-26] MEDS: LEXAPRO PO SCH (09:04)
[2017-01-26] MEDS: NEURONTIN PO SCH ×2 (09:04→13:15)
[2017-01-26] MEDS: DOXYCYCLINE PO SCH (09:04)
[2017-01-26] MEDS: FLAGYL PO SCH ×2 (09:04→13:15)
[2017-01-26] MEDS: DIFLUCAN PO SCH (09:05)
[2017-01-26] MEDS: NICODERM PATCH TD SCH (09:05)
[2017-01-26] MEDS: NORCO-10 PO PRN ×2 (10:46→16:41)
[2017-01-26 12:32] LABS: HEPATITIS PROFILE ACUTE SEE COMMENTS
[2017-01-26 15:33] VITALS: BP 122/75
[2017-01-26] MEDS ORDERED: LEVAQUIN PO SCH (21:00)
--- NOTE | 2017-01-27 13:07 | DISCHARGE SUMMARY ---
ADMISSION DATE: 01/21/2017 DISCHARGE DATE: 01/26/2017 CONSULTS: Dr. Elpidio Sanz, General Surgery. DIAGNOSES: 1. Left forearm cellulitis secondary to tick bite. 2. Leukocytosis. 3. Urinary tract infection Escherichia coli. 4. Abdominal pain, resolved. 5. Enterocolitis with Clostridium difficile toxin negative x2. DIAGNOSTICS: 1. 01/21/2017, CT of the abdomen and pelvis revealed possibility of enterocolitis suspected. 2. 01/24/2017, abdominal x-ray revealed mild gaseous small bowel distention which is decreased compared to prior exam. 3. 01/25/2017, abdomen x-ray. Continued improvement. 4. Microbiology. Urinary urine culture revealed Escherichia coli. 5. Stool culture was negative for salmonella, shigella, and Campylobacter, Escherichia coli. Clostridium difficile was negative on 2 occasions. 6. Lyme disease was negative. HOSPITAL COURSE: Ms. Carlton presented to the emergency room complaining of redness to her left forearm with fever and chills after having a tick bite. She did have a white count of 21. She was treated with vancomycin and Rocephin as well as doxycycline for antibiotic coverage. White count did decrease. She was found to have Escherichia coli that was zimmerman sensitive. CT of the abdomen showed enterocolitis. We did consult general surgery. It was recommended to continue with antibiotic coverage. Over the last 24 hours, she thankfully has improved and has not been able to advance her diet to a regular diet with no abdominal pain. We did trend electrolytes and replete as appropriate. We did get her report back from [facility] regarding her tick titer. This was reviewed with Dr. Junior Mcrae, Infectious Disease, who did state that she is negative Lyme disease as she does have negative IgM and IgG with titers less than 1.64. DISCHARGE PHYSICAL EXAMINATION: Cardiovascular: Regular rate and rhythm. S1 and S2 appreciated. Pulmonary: Breath sounds are clear with no increased work of breathing noted. Gastrointestinal: Abdomen is soft, nontender. Bowel sounds in all 4 quadrants. Extremities: No clubbing, cyanosis or edema to her left arm or bilateral lower extremities. No clubbing, cyanosis, or edema to the right arm. Her left arm does have some lymphangitis. Neurologic: She is alert and oriented x3. Vital Signs: Blood pressure is 122/75 with a heart rate of 66, respirations are 20, temperature is 98.3 degrees oral with room air saturations 99%. DISCHARGE MEDICATIONS: 1. Lexapro 20 mg daily. 2. Mobic 15 mg daily. 3. Neurontin 300 t.i.d. 4. Flagyl 500 t.i.d. 5. Levaquin 500 at bedtime. 6. Hoffman 10 q.6 hours p.r.n.. 7. Nexium 40 daily. 8. Mycelex troches 5 times a day. FOLLOWUP: She is to follow up with her primary care physician in 1-2 weeks or sooner if needed. She is being discharged home in stable condition with family members. TIME SPENT: This is a greater than 30 minute discharge. Dictated by LYNNETTE Velez for Bhanu Hollins MD cc: LYNNETTE Velez MD
[2017-01-28 12:52] LABS: HCV BY PCR SEE COMMENTS; HCV CHARGE YES
== END 2017-01-26 16:45 | disposition home or self-care (01) ==
LOC: P.ED 03:04 → P.MEDSURG 05:26 → SUATTDRO 05:26
PROVIDERS: ATTEND Family Medicine